=== PATIENT | female | born 1965 | race Caucasian/White ===

== ENCOUNTER 2021-10-21 08:24 | Day surgery (SDC) | payer OTHER ==
[2021-10-07 17:02] VITALS: BMI 39.6
[2021-10-21] MEDS ORDERED: PROPOFOL 20 ML ONE (09:50)
[2021-10-21] MEDS ORDERED: LIDOCAINE HCL 2% (20ML MULTI-DOSE VIAL) ONE (09:58)
[2021-10-21] MEDS ORDERED: BUPIVACAINE HCL/PF 0.25% (2.5MG/ML) 10 ML VIAL ONE (09:58)
[2021-10-21] MEDS ORDERED: MIDAZOLAM HCL 2 MG/2 ML SINGLE DOSE VIAL ONE ×2 (10:05)
[2021-10-21] MEDS ORDERED: fentaNYL CITRATE 250 MCG/5 ML VIAL ONE (10:05)
[2021-10-21] MEDS ORDERED: BUPIVACAINE HCL/PF 0.25% (2.5MG/ML) 10 ML VIAL IJ ONE (10:18)
[2021-10-21 16:54] VITALS: TEMP 97.9
[2021-10-21 17:04] VITALS: BP 130/80; PULSE 72
== END 2021-10-21 11:50 | disposition home or self-care (01) ==
LOC: FASU 08:24
PROVIDERS: ATTEND Orthopaedic Surgery Hand Surgery
PROC: 0HQQXZZ Repair Finger Nail, External Approach (ICD-10-PCS; 2021-10-21)
PROC: 01N50ZZ Release Median Nerve, Open Approach (ICD-10-PCS; principal; 2021-10-21 10:22)
PROC: 0JBK0ZZ Excision of Left Hand Subcutaneous Tissue and Fascia, Open Approach (ICD-10-PCS; 2021-10-21 10:22)
DX: G56.02 Carpal tunnel syndrome, left upper limb (principal); D21.12 Benign neoplasm of connective and other soft tissue of left upper limb, including shoulder
CPT/HCPCS: 88305-TC; 88341-TC; 88342-TC

== ENCOUNTER 2021-11-06 23:36 | Emergency (ER) | payer OTHER ==
[2021-11-06 23:42] VITALS: BP 0/0; BMI 35.4
== END 2021-11-07 00:32 | disposition home or self-care (01) ==
LOC: FER 23:36
DX: M79.89 Other specified soft tissue disorders (principal)
CPT/HCPCS: 99281-25